=== PATIENT | female | born 1950 | race Caucasian/White ===

== ENCOUNTER 2018-01-05 10:57 | Emergency (ER) | payer OTHER ==
[~2018-01-05] VITALS: Ht 157.5 cm; Wt 75.5 kg
[2018-01-05 11:03] VITALS: BP 123/75; TEMP 98.8
[2018-01-05] MEDS ORDERED: EXCEDRIN1 TAB PO (11:16)
[2018-01-05] MEDS ORDERED: PREDNISONE20 MG PO (11:42)
[2018-01-05 11:54] VITALS: PULSE 77
== END 2018-01-05 11:55 | disposition home or self-care (01) ==
LOC: COL.ER 10:57
DX: G43.909 Migraine, unspecified, not intractable, without status migrainosus (principal); L25.9 Unspecified contact dermatitis, unspecified cause; Z90.710 Acquired absence of both cervix and uterus

== ENCOUNTER 2018-10-16 20:04 | Emergency (ER) | payer OTHER ==
[~2018-10-16] VITALS: Ht 157.5 cm; Wt 72.7 kg
[~2018-10-16 20:04] MED LIST: EXCEDRIN1 TAB PO; PREDNISONE20 MG PO
[2018-10-16 20:44] LABS: BASO # 0.1 (0.0-0.2); BASO % 0.5 % (0.0-2.0); EOS % 0.3 % (0-4.0); GRAN # 8.9 (1.4-6.5); GRAN % 81.9 % (42.2-75.2); LYMPH # 1.2 (1.2-3.4); LYMPH % 10.6 % (20.0-51.0); MEAN CELL VOLUME 90 fl (80.0-100.0); MEAN CORPUSCULAR HEMOGLOBIN 30 pg (27.0-31.0); MEAN CORPUSCULAR HGB CONC 33 g/dl (33.0-37.0); MEAN PLATELET VOLUME 10.7 fl (7.4-10.4); MONO # 0.7 (0.1-0.6); MONO % 6.5 % (1.7-9.3); PLATELET COUNT 195 K/mm3 (130-400); RED BLOOD COUNT 4.03 M/mm3 (4.10-5.30)
[2018-10-16 20:47] LABS: HEMATOCRIT 36.4 % (37.0-47.0)
[2018-10-16 20:59] LABS: BILIRUBIN,TOTAL 0.3 mg/dL (0.0-1.0); C-REACTIVE PROTEIN 5.8 mg/dL (0.0-0.9); CALCIUM 9.1 mg/dL (8.4-10.2); CREATININE, serum 0.53 (0.52-1.25); POTASSIUM 3.5 mmol/L (3.4-5.0); TOTAL PROTEIN 7.1 gm/dL (6.4-8.2)
[2018-10-16 21:03] LABS: STREP SCREEN NEGATIVE
[2018-10-16 22:56] LABS: COLLECTION METHOD CLEAN CATCH
[2018-10-16 23:06] LABS: MUCOUS Present /lpf; PH 6 (5-8); URINE APPEARANCE Clear; URINE BACTERIA None Seen /hpf; URINE BILIRUBIN Negative (NEGATIVE); URINE BLOOD Negative (NEGATIVE); URINE COLOR Yellow; URINE GLUCOSE Negative (NEGATIVE); URINE KETONE 1+ (NEGATIVE); URINE LEUKOCYTE ESTERASE 1+ (NEGATIVE); URINE NITRATE Negative (NEGATIVE); URINE PROTEIN(semi-quant) Negative (NEGATIVE); URINE UROBILINOGEN Negative (NEGATIVE)
[2018-10-16] MEDS ORDERED: NORCO 325 MG-51 TAB PO (23:33)
[2018-10-16] MEDS ORDERED: CLEOCIN HCL300 MG PO (23:33)
[2018-10-17] MEDS ORDERED: NORCO 325 MG-51 TAB PO (00:46)
[2018-10-17 00:52] VITALS: BP 128/84; PULSE 109; TEMP 99.9
== END 2018-10-17 00:52 | disposition home or self-care (01) ==
LOC: COL.ER 20:04
PROVIDERS: Physician Assistant
DX: J02.9 Acute pharyngitis, unspecified (principal); J45.909 Unspecified asthma, uncomplicated; Z90.49 Acquired absence of other specified parts of digestive tract; Z90.710 Acquired absence of both cervix and uterus
CPT/HCPCS: J1100; J1200; J1885; J2930; J7030; Q9967

== ENCOUNTER → 2018-10-21 | Outpatient (CLI) | payer OTHER ==
[~2018-10-21] MED LIST changes: +CLEOCIN HCL300 MG PO; +NORCO 325 MG-51 TAB PO
== END ==
LOC: COL.RAD 10:22
DX: E04.2 Nontoxic multinodular goiter (principal)

== ENCOUNTER → 2018-11-14 | Outpatient (CLI) | payer MEDICARE, OTHER | LOC: COL.RAD 14:07 | DX: K44.9 Diaphragmatic hernia without obstruction or gangrene (principal); K21.9 Gastro-esophageal reflux disease without esophagitis ==

== ENCOUNTER 2018-12-06 10:03 | Day surgery (SDC) | payer MEDICARE, OTHER ==
[2018-12-06] VITALS (11 sets, daily range): BP systolic 114–151; BP diastolic 66–95; PULSE 58–96; TEMP 97.5–98.2
[~2018-12-06] VITALS: Ht 157.5 cm; Wt 72.7 kg
[~2018-12-06 10:03] MED LIST changes: +PRILOSEC 20MG20 MG PO
[2018-12-06] MEDS ORDERED: ADVIL200 MG PO (11:02)
--- NOTE | 2018-12-06 11:35 | NUR ---
HIRAM Guy made aware of patient's blood pressure being elevated. OUTBOARD SYSTEM OPERATOR into see patient at this time.
--- NOTE | 2018-12-06 11:45 | NUR ---
into see patient at this time.
--- NOTE | 2018-12-06 12:02 | NUR ---
Initial visit; Patient and family thanked [facility] for offering Spiritual Care, especially prayer prior to her surgical procedure.
--- NOTE | 2018-12-06 15:30 | NUR ---
Patient up from OR. Drowsy but arouses to voice and touch. Family at bedside. Lap sites x 6 with edges well approximated. Post op fluids infusing via gravity to left forarm IV. SCDs to BLE. Assessment complete. Denies further needs at this time. will continue to monitor
--- NOTE | 2018-12-06 18:39 | NUR ---
Patient has done well this afternoon, complains of head and neck pain. Post op VSS. Family remains at bedside. Has been up to restroom, x1 assist with steady gait. Denies further needs at this time. Will report off to car shifter.
--- NOTE | 2018-12-06 21:37 | NUR ---
Patient in bed, has wash cloth over eyes, complaining of headache and neck ache. Medicated with Dilaudid 0.25mg IV and dose of Ibuprofen given. IVF infusing to left forearm without redness or swelling. Robotic sites to abdomen x6 D/I glued. Bowel sounds hypoactive.
--- NOTE | 2018-12-06 23:20 | NUR ---
Reports nausea, medicated with oral Phenergan 12.5mg and IV Zofran 4mg at this time. Up to bathroom, voids 450cc yellow urine without problem.
[2018-12-07 03:11] VITALS: BP 142/68; PULSE 74; TEMP 98.6
--- NOTE | 2018-12-07 03:14 | NUR ---
Medicated with IV Dilaudid for continued headache. Continues to have intermittent nausea, especially with movement.
--- NOTE | 2018-12-07 06:00 | NUR ---
Reports headache is better after dose of Dilaudid at 0314. Reports continued nausea, medicated with Zofran 4mg IV at this time.
--- NOTE | 2018-12-07 07:15 | NUR ---
report to Emily COELLO
--- NOTE | 2018-12-07 08:00 | NUR ---
UPON ENTRY INTO THE ROOM PATIENT IS RESTING IN THE DARK WITH HER DAUGHTER PRESENT AT THE BEDSIDE. PATIENT IS A&OX4. VSS. PATIENT STATES THAT SHE FEELS WEAK. BOWEL SOUNDS ACTIVE ALL FOUR QUADRANTS. BILATERAL UPPER LUNG LOBES AND RLL CLEAR UPON ASUCULTATION. FINE CRACKLES AUSCULTATED OVER LEFT LOWER LUNG LOBE. ABDOMINAL LAP SITES X6 PHILOMENA WITH MÁRQUEZ SET IN PLACE AND EDGES WELL APPROXIMATED. POSITIVE PEDAL PULSES EQUAL BILATERALLY. NON-PITTING EDEMA TO BLE. SCD'S TO BLE. IV FLUIDS INFUSING TO LEFT FOREARM IV VIA PUMP. CALL LIGHT WITHIN REACH. PATIENT DENIES ANY NEEDS AT THIS TIME.
[2018-12-07] MEDS ORDERED: PHENERGAN 25 TA25 MG PO (08:05)
[2018-12-07] MEDS ORDERED: PERCOCET 325 MG1 TA2 PO (08:06)
[2018-12-07] MEDS ORDERED: MOTRIN 600600 MG/TAB PO (08:06)
[2018-12-07] MEDS ORDERED: ZOFRAN ODT4 MG PO (08:07)
[2018-12-07 08:25] VITALS: BP 130/82; PULSE 85; TEMP 98
--- NOTE | 2018-12-07 10:55 | NUR ---
NATHAN met with the patient and patient's daughter, Malena, to discuss discharge plan. 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 She reports independence with ADLs and does not have any DME. The patient's PCP is Dr. Fuentes Stein and she receives her medications at the [facility]. She reports no difficulties obtaining her meds. The patient's advanced directives are in her chart. Her daughter, Heather, is her DPOA-HC. The alternate is her daugher, Malena. The patient plans to return home with her daughter upon discharge. No additional needs at this time.
--- NOTE | 2018-12-07 11:03 | NUR ---
First visit from the executive administrative asst. No needs right now.
[2018-12-07 12:00] VITALS: BP 125/84; PULSE 75; TEMP 98.6
[2018-12-07 17:22] VITALS: BP 115/71; PULSE 77; TEMP 98.1
--- NOTE | 2018-12-07 17:25 | NUR ---
PATIENT'S MIGRAINE AND ABDOMINAL PAIN TREATED WITH PO EXCEDRIN, TYLENOL, AND PERCOCET, WELL IV TORADOL THROUGHOUT THE SHIFT.
--- NOTE | 2018-12-07 19:22 | NUR ---
REPORT GIVEN TO MODE LIANG.
[2018-12-07 19:43] VITALS: BP 146/77; PULSE 83; TEMP 97.8
--- NOTE | 2018-12-07 22:20 | NUR ---
Patient denies headache, reports pain to abdomen /10. Medicated with Percocet 2 tabs at this time. Patient sat up in the chair for 2 hours, does not want to walk in the hallway, has walked in her room. Reports "gas" like pain to abdomen and shoulders, continued to encourage walking as she hasn't passed gas. IVF infusing to left FA without redness or swelling. Daughter remains at bedside. Lap sites dry, bowel sounds active. Denies nausea at this time.
[2018-12-07 23:29] VITALS: BP 132/59; PULSE 80; TEMP 98
[2018-12-08 03:57] VITALS: BP 145/91; PULSE 89; TEMP 98.3
--- NOTE | 2018-12-08 04:00 | NUR ---
Patient awake, complains of her "normal" headache, takes Excedrin at this time. Ambulates in hallway with her daughter. Noted subq emphysema around base of her neck. IV infusing to left FA site without redness or swelling.
--- NOTE | 2018-12-08 05:45 | NUR ---
Patient taking oral fluids well. IVF capped, has mild edema to bilateral lower legs.
[2018-12-08 07:38] VITALS: BP 126/73; PULSE 79; TEMP 98.4
--- NOTE | 2018-12-08 08:00 | NUR ---
UPON ENTRY INTO ROOM PATIENT IS SITTING IN THE CHAIR WITH HER DAUGHTERS PRESENT IN THE ROOM. PATIENT IS A&OX4. VSS. BOWEL SOUNDS ACTIVE ALL FOUR QUADRANTS. PATIENT TOLERATING DIET WITHOUT ANY COMPLAINTS OF N/V. PATIENT PASSING FLATUS. ABDOMINAL LAP SITES X6 COTTON WEIGHER WITH EDGES WELL APPROXIMATED AND MÁRQUEZ SET IN PLACE. POSITIVE PEDAL PULSES EQUAL BILATERALLY. NON-PITTING EDEMA TO BLE. INT TO LEFT FOREARM. PATIENT AMBULATING IN HALLWAY WITH FAMILY THIS MORNING. CALL LIGHT WITHIN REACH. PATIENT DENIES ANY NEEDS AT THIS TIME.
[2018-12-08 11:52] VITALS: BP 130/76; PULSE 69; TEMP 97.8
--- NOTE | 2018-12-08 13:40 | NUR ---
PATIENT'S LEFT FOREARM INT DISCONTINUED PER PENDING DISCHARGE. TIP INTACT. PATIENT TOLERATED WELL.
--- NOTE | 2018-12-08 13:45 | NUR ---
DISCHARGE INSTRUCTIONS REVIEWED WITH PATIENT AND DAUGHTERS. ALL QUESTIONS ANSWERED. PATIENT PERSONAL BELONGINGS GATHERED. PATIENT AMBULATED TO PERSONAL VEHICLE WITH SURGICAL STAFF. PATIENT DISCHARGED.
[2018-12-08 16:09] VITALS: BP 100/57; PULSE 60; TEMP 97.8
== END 2018-12-08 13:45 | disposition home or self-care (01) ==
LOC: SDCO 10:03 → SURG 15:20 → SDCO 12-08 13:45
DX: K21.9 Gastro-esophageal reflux disease without esophagitis (principal); K44.9 Diaphragmatic hernia without obstruction or gangrene; J43.9 Emphysema, unspecified; Z90.710 Acquired absence of both cervix and uterus; Z90.89 Acquired absence of other organs; M19.90 Unspecified osteoarthritis, unspecified site; G43.909 Migraine, unspecified, not intractable, without status migrainosus; Z90.49 Acquired absence of other specified parts of digestive tract; Z80.3 Family history of malignant neoplasm of breast; Z80.8 Family history of malignant neoplasm of other organs or systems; Z88.2 Allergy status to sulfonamides
CPT/HCPCS: OP; J0690; J1100; J1170; J1885; J2405; J2704; J3010; J7120

== ENCOUNTER → 2019-02-28 | Outpatient (CLI) | payer MEDICARE, OTHER ==
[~2019-02-28] MED LIST changes: +ADVIL200 MG PO; +MOTRIN 600600 MG/TAB PO; +PERCOCET 325 MG1 TA2 PO; +PHENERGAN 25 TA25 MG PO; +ZOFRAN ODT4 MG PO
== END ==
LOC: COL.RAD 08:59
DX: K21.9 Gastro-esophageal reflux disease without esophagitis (principal); K22.8 Other specified diseases of esophagus; Z98.890 Other specified postprocedural states

== ENCOUNTER → 2019-03-09 | Outpatient (CLI) | payer MEDICARE, OTHER | LOC: COL.RAD 06:52 | DX: K44.9 Diaphragmatic hernia without obstruction or gangrene (principal); K52.9 Noninfective gastroenteritis and colitis, unspecified | CPT/HCPCS: A9541 ==

== ENCOUNTER → 2019-12-29 | Outpatient (CLI) | payer MEDICARE, OTHER | LOC: MC.RAD 12:58 | DX: N64.89 Other specified disorders of breast (principal); N64.59 Other signs and symptoms in breast ==

== ENCOUNTER → 2020-01-03 | Outpatient (CLI) | payer MEDICARE, OTHER | LOC: MC.RAD 07:54 | DX: N63.10 Unspecified lump in the right breast, unspecified quadrant (principal) ==

== ENCOUNTER 2020-01-19 06:51 | Day surgery (SDC) | payer MEDICARE, OTHER ==
[~2020-01-19] VITALS: Ht 157.5 cm; Wt 68.7 kg
[2020-01-19 08:54] VITALS: BP 160/98; PULSE 68; TEMP 98.6
[2020-01-19] MEDS ORDERED: TYLENOL 500MG500 MG PO (08:57)
[2020-01-19] MEDS ORDERED: PRIL40 PO (08:57)
[2020-01-19] MEDS ORDERED: ONE-A-DAY ESSE1 EACH PO (08:58)
[2020-01-19] MEDS ORDERED: MASON NATURAL2000 IU PO (08:58)
[2020-01-19] MEDS ORDERED: MOTRIN 200200 MG/TAB PO (08:59)
[2020-01-19] MEDS ORDERED: PROAIR HFA0.09 MG/AC IH (09:00)
--- NOTE | 2020-01-19 11:00 | NUR ---
The nurse assisted the patient to the bathroom with stand by assist and she appeared to tolerate the activity well. The patient voided without difficulty and ambulated back to bed. The patient denies any further needs at this time. The patient's daughter is at her bedside. Will continue to monitor the patient.
[2020-01-19] MEDS ORDERED: NORCO 325 MG-51 TAB PO (15:09)
[2020-01-19] MEDS ORDERED: MOTRIN 600600 MG/TAB PO (15:09)
[2020-01-19 15:40] VITALS: BP 122/74; PULSE 89; TEMP 98.4
--- NOTE | 2020-01-19 15:40 | NUR ---
The patient arrived back to [facility] from the recovery room at this time. The patient appears drowsy but arouses to her name. Post operative vital signs were started at this time. The patient's incision and dressing appear clean, dry and intact. The patient's daughter was brought back to be at her bedside. The patient has some ice chips at on her bedside table and appears to be tolerating them well. Call light is within reach. Will continue to monitor the patient.
[2020-01-19 15:55] VITALS: BP 118/71; PULSE 85
--- NOTE | 2020-01-19 15:55 | NUR ---
The patient appears to be resting comfortably on the cart at this time. Respirations even and unlabored. Daughter at bedside. Will continue to monitor the patient.
[2020-01-19 16:10] VITALS: BP 118/67; PULSE 84
--- NOTE | 2020-01-19 16:10 | NUR ---
The patient appears to be resting quielty with her eyes closed at this time. Respirations even and unlabored. The patient's daughter remains at her bedside. Will continue to monitor the patient.
[2020-01-19 16:25] VITALS: BP 134/79; PULSE 90
--- NOTE | 2020-01-19 16:25 | NUR ---
The patient was escorted out via wheelchair to a private vehicle by MODE Comer. The patient's belongings and discharge paperwork were sent with her. The patient's daughter is present to drive her hoem.
--- NOTE | 2020-01-19 16:25 | NUR ---
The patient's oxygen was turned down to 1L per nasal cannula. The patient continues to rest comfortably on the cart. Call light is within reach. Will continue to monitor the patient.
--- NOTE | 2020-01-19 16:35 | NUR ---
The patient reports having a migraine at this time. The nurse attempted to place an order for the patient's home excederin per Dr. Andrews but the pharmacy no longer carries excederin in their formulary.
--- NOTE | 2020-01-19 16:45 | NUR ---
The patient was given a dose of Motrin 600 mg at this time. The patient appears to be tolerating the water well and states it helps her "sore throat". The patient agrees to try some orange jello. The patient also was given a cool wash cloth for her forehead. The patient's daughter is going to assist her with the jello.
[2020-01-19 16:55] VITALS: BP 130/75; PULSE 89
--- NOTE | 2020-01-19 16:55 | NUR ---
The patient ambulated to the bathroom with the stand by assistance of the nurse and her daughter and appeared to tolerate the activity well. The patient voided without difficulty and voices a desire to be discharged. The patient's daughter is going to assist her to get dressed while the nurse finalizes the patient's discharge paperwork.
--- NOTE | 2020-01-19 17:20 | NUR ---
Discharge instructions were reviewed with the patient and her daughter at this time. They both verbalized understanding and have no questions for the nurse at this time. The patient's IV to her left hand was removed and a pressure dressing was applied to the site. The patient is dressed and ready to be escorted out.
== END 2020-01-19 17:25 | disposition home or self-care (01) ==
LOC: SDCO
DX: C50.911 Malignant neoplasm of unspecified site of right female breast (principal); Z17.0 Estrogen receptor positive status [ER+]; Z90.710 Acquired absence of both cervix and uterus; Z90.49 Acquired absence of other specified parts of digestive tract; Z88.3 Allergy status to other anti-infective agents; Z88.8 Allergy status to other drugs, medicaments and biological substances; Z91.048 Other nonmedicinal substance allergy status; K21.9 Gastro-esophageal reflux disease without esophagitis; G43.909 Migraine, unspecified, not intractable, without status migrainosus; M19.90 Unspecified osteoarthritis, unspecified site; D64.9 Anemia, unspecified; Z20.828 Contact with and (suspected) exposure to other viral communicable diseases
CPT/HCPCS: A9541; J0690; J1100; J1885; J2250; J2405; J2704; J2795; J3010; J7120

== ENCOUNTER 2020-01-30 06:39 | Day surgery (SDC) | payer MEDICARE, OTHER ==
[~2020-01-30] VITALS: Ht 157.5 cm; Wt 69.7 kg
[~2020-01-30 06:39] MED LIST changes: +MASON NATURAL2000 IU PO; +MOTRIN 200200 MG/TAB PO; +ONE-A-DAY ESSE1 EACH PO; +PRIL40 PO; +PROAIR HFA0.09 MG/AC IH; +TYLENOL 500MG500 MG PO
[2020-01-30 07:01] VITALS: BP 122/86; PULSE 74; TEMP 98.4
[2020-01-30 12:32] VITALS: BP 116/72; PULSE 87; TEMP 98.6
--- NOTE | 2020-01-30 12:32 | NUR ---
The patient arrived back to [facility] from the recovery room at this time. The patient appears alert and oriented and denies any pain or nausea at this time. The patient has a dressing to her right axilla and right port a catheter incision that appear clean, dry and intact. The patient has a drain set to to bulb suction in place to her right axilla that appears without redness or edema and has a small amount of red drainage present in the tubing and bulb. The patient's daughter was brought back to be at her bedside. The patient agrees to try some water at this time. Post operative vital signs were started at this time. Will continue to monitor the patient.
[2020-01-30 12:47] VITALS: BP 112/69; PULSE 74
--- NOTE | 2020-01-30 12:47 | NUR ---
The patient appears to be tolerating the water well. The patient's vital signs appear stable. Call light is within reach. Will continue to monitor the patient.
[2020-01-30 13:02] VITALS: BP 112/65; PULSE 75
--- NOTE | 2020-01-30 13:02 | NUR ---
The patient was given a new glass of water and some orange jello to try at this time. The patient's daughter remains at her bedside. Will continue to monitor the patient.
[2020-01-30 13:17] VITALS: BP 124/68; PULSE 74
--- NOTE | 2020-01-30 13:17 | NUR ---
The patient has finished her jello and appeared to tolerate the food and drink well. The patient denies wanting anything further to eat to drink at this time. Call light remains within reach. Will continue to monitor the patient.
--- NOTE | 2020-01-30 13:20 | NUR ---
Drain teaching was completed with the patient and her daughter. They both verbalized understanding and have no questions for the nurse at this time. The nurse provided with a pamphlet on HARSH drains which includes a log to record drain output.
--- NOTE | 2020-01-30 13:30 | NUR ---
The patient ambulated to the bathroom with the stand by assistance of one nurse and the daughter and appeared to tolerate the activity well. The patient voided without difficulty and voices a desire to be discharged home. The patient's daughter is going to assist the patient to get dressed and notify the staff when she is ready to be escorted out.
--- NOTE | 2020-01-30 13:49 | NUR ---
Discharge instructions were reviewed with the patient and her daughter at this time. They both verbalized understanding and have no questions for the nurse at this time. The patient's IV to left hand was removed and a pressure dressing was applied to the site. The patient is dressed and ready to be escorted out.
--- NOTE | 2020-01-30 14:00 | NUR ---
The patient was escorted out via wheelchair to a private vehicle by MODE Comer. The patient's belongings and discharge paperwork were sent with her. The patient's daughter is present to drive her home.
== END 2020-01-30 14:00 | disposition home or self-care (01) ==
LOC: SDCO
DX: C77.3 Secondary and unspecified malignant neoplasm of axilla and upper limb lymph nodes (principal); C50.911 Malignant neoplasm of unspecified site of right female breast; M54.5 Low back pain; G43.909 Migraine, unspecified, not intractable, without status migrainosus; Z20.828 Contact with and (suspected) exposure to other viral communicable diseases; Z79.899 Other long term (current) drug therapy; Z98.51 Tubal ligation status; Z90.710 Acquired absence of both cervix and uterus; Z80.3 Family history of malignant neoplasm of breast; Z88.5 Allergy status to narcotic agent; Z91.041 Radiographic dye allergy status; Z90.49 Acquired absence of other specified parts of digestive tract
CPT/HCPCS: C1788; J0360; J0690; J1100; J1644; J1885; J2250; J2405; J2704; J2795; J3010; J7120

== ENCOUNTER 2020-04-17 10:00 | Outpatient (RCR) | payer MEDICARE, OTHER | END 2020-04-17 10:56 | disposition home or self-care (01) | LOC: MKS.ESL.PT 10:00 | DX: C50.911 Malignant neoplasm of unspecified site of right female breast (principal); I89.0 Lymphedema, not elsewhere classified; Z98.890 Other specified postprocedural states ==

== ENCOUNTER → 2020-08-09 | Outpatient (CLI) | payer MEDICARE, OTHER ==
[~2020-08-09] MED LIST changes: +ARIMIDEX1 MG PO; +LIPITOR 40MG TA40 MG PO; -MASON NATURAL2000 IU PO; +PRINIVIL10 MG PO; +REGLAN 5MG T5 MG/TAB PO; +TOPROL XL 25MG25 MG PO; +VITAMIND3 5000 PO
== END ==
LOC: COL.RAD 08-08 12:00
DX: R06.02 Shortness of breath (principal)
CPT/HCPCS: A9540; A9567

== ENCOUNTER → 2020-09-27 | Outpatient (CLI) | payer MEDICARE, OTHER | LOC: MC.RAD 12:56 | DX: N63.11 Unspecified lump in the right breast, upper outer quadrant (principal); N64.89 Other specified disorders of breast; Z98.890 Other specified postprocedural states; Z85.3 Personal history of malignant neoplasm of breast; Z98.82 Breast implant status ==

== ENCOUNTER → 2021-03-28 | Outpatient (CLI) | payer MEDICARE, OTHER | LOC: MC.RAD 14:00 | DX: C50.911 Malignant neoplasm of unspecified site of right female breast (principal); Z98.890 Other specified postprocedural states ==

== ENCOUNTER 2021-04-07 08:31 | Day surgery (SDC) | payer MEDICARE, OTHER ==
[~2021-04-07] VITALS: Ht 157.5 cm; Wt 71.4 kg
[2021-04-07] VITALS (13 sets, daily range): BP systolic 143–169; BP diastolic 73–124; PULSE 60–77; TEMP 98
[~2021-04-07 08:31] MED LIST changes: -ARIMIDEX1 MG PO; -LIPITOR 40MG TA40 MG PO; -PRINIVIL10 MG PO; -REGLAN 5MG T5 MG/TAB PO; -TOPROL XL 25MG25 MG PO
[2021-04-07] MEDS ORDERED: ARIMIDEX1 MG PO (09:08)
[2021-04-07] MEDS ORDERED: PRINIVIL10 MG PO (09:09)
[2021-04-07] MEDS ORDERED: TOPROL XL 25MG25 MG PO (09:10)
[2021-04-07] MEDS ORDERED: LIPITOR 40MG TA40 MG PO (09:11)
[2021-04-07] MEDS ORDERED: REGLAN 5MG T5 MG/TAB PO (09:11)
[2021-04-07] MEDS ORDERED: PREDNISONE20 MG PO (09:15)
[2021-04-07 09:52] LABS: HEMOGLOBIN 10.8 g/dl (12.5-16.0); MEAN CELL VOLUME 89 fl (80.0-100.0); MEAN CORPUSCULAR HEMOGLOBIN 29 pg (27.0-31.0); MEAN CORPUSCULAR HGB CONC 32 g/dl (33.0-37.0); MEAN PLATELET VOLUME 9.8 fl (7.4-10.4); PLATELET COUNT 241 K/mm3 (130-400); RED BLOOD COUNT 3.75 M/mm3 (4.10-5.30); REDCELL DISTRIBUTION WIDTH-CV 13.3 % (11.5-14.5)
[2021-04-07 09:54] LABS: HEMATOCRIT 33.5 % (37.0-47.0)
[2021-04-07 10:02] LABS: INR 1.1 (0.8-3.0); PROTHROMBIN TIME 12.2 SECONDS (9.7-12.8)
[2021-04-07 10:04] LABS: PARTIAL THROMBOPLASTIN TIME 27.9 SECONDS (26.0-37.0)
[2021-04-07 10:07] LABS: CALCIUM 9.8 mg/dL (8.4-10.2); CREATININE, serum 0.59 mg/dL (0.57-1.11); POTASSIUM 3.8 mmol/L (3.5-4.5)
--- NOTE | 2021-04-07 10:44 | NUR ---
SEE MERGE DOCUMENTATION FOR MEDICATION ADMINISTRATION TIMES AND INTRA/POST PROCEDURE SEDATION ASSESSMENTS. PLAN FOR LEFT RADIAL ACCESS D/T HX OF LYMPHEDMA ON RIGHT.
--- NOTE | 2021-04-07 13:22 | NUR ---
Attempted to removed 2ml of air from TR band resulting in immediate oozing of blood from punture site. 2ml of air replaced and oozing stops. Will attempt to remove air again in one hour.
--- NOTE | 2021-04-07 14:22 | NUR ---
Second attempt to remove 2ml of air from TR band. Immediate oozing of blood from punture site when air is removed, and oozing resolves as soon as air is replaced in band. Cap refill remains brisk to left hand and pt denies complaints of numbess or tingeling to fingers. She is assisted up to bathroom with steady gait.
--- NOTE | 2021-04-07 16:06 | NUR ---
DC instructions reviewed with pt and daughter, both express understanding. On initial 2 attempts to deflate TR band, bleeding from left radial puncture site occured immediatley upon releasing 2 ml of air, and stopped with replacement of 2ml of air. Attempt to remove 2ml of air again at 1525 with no bleeding from site. Remainder of air in TR band was removed in 2ml increments every 5 mins without issue. Left radial puncture site dressed with folded 2x2, bandaid and coban wrap. Pt instructed to remove coban wrap once she is home. PAC flushed, heparinized and deaccessed. Pt has been steady on feet in room. She has refused desire to eat but has tolerated PO fluids without issue. She is assisted out to daughter's car at this time by wheelchair with personal belongings.
== END 2021-04-07 16:05 | disposition home or self-care (01) ==
LOC: COL.CAR 08:31
PROVIDERS: Internal Medicine Cardiovascular Disease
DX: I25.118 Atherosclerotic heart disease of native coronary artery with other forms of angina pectoris (principal); I10 Essential (primary) hypertension; I51.7 Cardiomegaly; E78.5 Hyperlipidemia, unspecified; Z79.82 Long term (current) use of aspirin; Z79.899 Other long term (current) drug therapy; Z83.3 Family history of diabetes mellitus; Z80.9 Family history of malignant neoplasm, unspecified
CPT/HCPCS: J1200; J1644; J2250; J7030; Q9967

== ENCOUNTER → 2021-11-14 | Outpatient (CLI) | payer MEDICARE, OTHER ==
[~2021-11-14] MED LIST changes: +ARIMIDEX1 MG PO; +LIPITOR 40MG TA40 MG PO; +PRINIVIL10 MG PO; +REGLAN 5MG T5 MG/TAB PO; +TOPROL XL 25MG25 MG PO
== END ==
LOC: MC.RAD 10:43
DX: N63.10 Unspecified lump in the right breast, unspecified quadrant (principal); Z85.3 Personal history of malignant neoplasm of breast; Z98.890 Other specified postprocedural states

== ENCOUNTER → 2022-04-01 | Outpatient (CLI) | payer OTHER, MEDICARE | LOC: COL.RAD 12:59 | DX: R51.9 Headache, unspecified (principal); I10 Essential (primary) hypertension ==

== ENCOUNTER → 2022-06-18 | Outpatient (CLI) | payer MEDICARE, OTHER | LOC: COL.RAD 08:16 | DX: R22.1 Localized swelling, mass and lump, neck (principal); Z85.3 Personal history of malignant neoplasm of breast | CPT/HCPCS: Q9967 ==

== ENCOUNTER → 2022-07-01 | Outpatient (CLI) | payer MEDICARE, OTHER | LOC: COL.RAD 13:45 | DX: E04.1 Nontoxic single thyroid nodule (principal) ==

== ENCOUNTER 2022-07-17 19:21 | Observation (INO) | payer MEDICARE, OTHER ==
[~2022-07-17] VITALS: Ht 154.9 cm; Wt 69.9 kg
[2022-07-17 19:54] LABS: COLLECTION METHOD CLEAN CATCH
[2022-07-17 19:59] LABS: BASO # 0.1 K/mm3 (0.0-0.2); BASO % 0.8 % (0.0-2.0); EOS # 0.2 K/mm3 (0.0-0.7); EOS % 2.1 % (0.0-4.0); GRAN # 5.6 K/mm3 (1.4-6.5); GRAN % 65.8 % (42.2-75.2); HEMATOCRIT 37.1 % (37.0-47.0); HEMOGLOBIN 12.2 g/dl (12.5-16.0); LYMPH # 2.2 K/mm3 (1.2-3.4); LYMPH % 25.5 % (20.0-51.0); MEAN CELL VOLUME 88 fl (80.0-100.0); MEAN CORPUSCULAR HEMOGLOBIN 29 pg (27-31); MEAN CORPUSCULAR HGB CONC 33 g/dl (33.0-37.0); MEAN PLATELET VOLUME 10.1 fl (7.4-10.4); MONO # 0.5 K/mm3 (0.1-0.6); MONO % 5.7 % (1.7-9.3); PLATELET COUNT 221 K/mm3 (130-400); RED BLOOD COUNT 4.24 M/mm3 (4.10-5.30); REDCELL DISTRIBUTION WIDTH-CV 15.9 % (11.5-14.5)
[2022-07-17 20:13] LABS: MUCOUS Present (NOT PRESENT); URINE BACTERIA None Seen /hpf (NONE SEEN)
[2022-07-17 20:15] LABS: URINE APPEARANCE Clear (CLEAR/HAZY); URINE BLOOD 1+ (NEGATIVE); URINE COLOR Yellow (YELLOW); URINE GLUCOSE Negative (NEGATIVE); URINE KETONE Negative (NEGATIVE); URINE NITRATE Negative (NEGATIVE); URINE PROTEIN(semi-quant) 2+ (NEGATIVE); URINE UROBILINOGEN 0.2 (NEGATIVE)
[2022-07-17 20:27] LABS: BILIRUBIN,TOTAL 0.3 mg/dL (0.2-1.2); CALCIUM 9.4 mg/dL (8.4-10.2); CREATININE, serum 0.82 mg/dL (0.57-1.11); POTASSIUM 3.4 mmol/L (3.5-4.5); TOTAL PROTEIN 6.8 gm/dL (6.2-8.1)
[2022-07-17] MEDS ORDERED: FERRO-TIME325 MG PO (21:13)
[2022-07-17] MEDS ORDERED: COZAAR 50MG50 MG/TAB PO (21:15)
[2022-07-17] MEDS ORDERED: CATAPRES 0.1MG0.1 MG PO (21:15)
[2022-07-17] MEDS ORDERED: TOPROL XL 25MG25 MG (21:16)
[2022-07-17] MEDS ORDERED: BINOSTO (21:17)
[2022-07-17] MEDS ORDERED: PEPCID 20MG TAB20 MG PO (21:18)
--- NOTE | 2022-07-17 21:40 | NUR ---
REPORT RCVD FROM ED. RN STATES THERE IS AN ORDER FOR BRANDS EDITOR, HOWEVER PAIN IS MANAGED WITH 0.25MG OF DILAUDID. CONTACTED DR. CARBAJAL FOR ORDERS ON THE FLOOR D/T AGGRESSIVE PAIN MANAGEMENT ORDERS AND RN CONCERN FOR OVER MEDICATING. DR. CARBAJAL AGREES, AND ORDERED 3MG MORPHINE Q2H PRN FOR PAIN, AND TORADOL 15MG Q6H SCHEDULED FOR ANTI-INFLAMMATORY. DR. CARBAJAL DID ASK FOR PATIENT TO BE NPO AT [facility] FOR 0900 PROCEDURE. NO OTHER CONCERNS AT THIS TIME. WILL AWAIT ARRIVAL OF PATIENT FROM ED.
[2022-07-17 22:14] VITALS: BP 175/90; PULSE 93; TEMP 98.5
--- NOTE | 2022-07-17 22:48 | NUR ---
Pt arrived to the surgical floor, denies pain at this time. The patient is ambulatory independently and went to the bathroom upon arrival. Urine is yellow and clear. Urine strained, no stone at this time. PCT did initial vitals upon arrival and blood pressure was elevated, contacted Dr. Meneses to restart patient's home blood pressure medications. Placed medication order for Metoprol XL 25mg and PRN Catapres 0.1mg. No other concerns at this time. Will reassess blood pressures in 1 hour.
[2022-07-17 23:43] VITALS: BP 118/61; PULSE 85; TEMP 98.3
[2022-07-18] VITALS (10 sets, daily range): BP systolic 99–150; BP diastolic 48–90; PULSE 55–75; TEMP 97.6–99.1
--- NOTE | 2022-07-18 06:25 | NUR ---
PT'S PAIN WAS MANAGED WITH TORADOL AND DILAUDID FOR BREAKTHROUGH. THE PATIENT IS ON MAINTAINANCE FLUIDS AT 125ML/HR. DR. CARBAJAL WILL ARRIVE EARLY THIS MORNING TO DISCUSS PROCEDURE WITH PATIENT. NO OTHER CONCERNS AT THIS TIME.
--- NOTE | 2022-07-18 07:00 | NUR ---
Pt. laying in bed. Pt. is A&OX3, assessment complete. IV to lt. ac patent. Pt. reports pain at a 9 on pain scale at this time, Giving meds per orders. Pt. denies further needs, call light within reach.
--- NOTE | 2022-07-18 08:15 | NUR ---
Pt. to OR
--- NOTE | 2022-07-18 10:15 | NUR ---
Pt. to the floor from PACU. VSS. Pt. remains A&OX3. Pt. denies pain or other needs.
--- NOTE | 2022-07-18 13:00 | NUR ---
Pt. has met discharge Criteria. INT discontinued from lt. ac. Reviewed and gave discharge paperwork to the pt. Pt. denies Questions. Pt. dresssed and escorted out by BLUEPRINT REPRODUCER.
== END 2022-07-18 13:00 | disposition home or self-care (01) ==
LOC: COL.ER 19:21 → SURG 21:07
PROVIDERS: Nurse Practitioner Primary Care; ADMIT Urology
DX: N20.1 Calculus of ureter (principal)
CPT/HCPCS: C1769; C2617; G0378; J0690; J1100; J1170; J1885; J2405; J2704; J3010; J7030; J7120

== ENCOUNTER 2022-08-10 06:27 | Day surgery (SDC) | payer MEDICARE, OTHER ==
[~2022-08-10] VITALS: Ht 154.9 cm; Wt 66.3 kg
[~2022-08-10 06:27] MED LIST changes: +BINOSTO; +CATAPRES 0.1MG0.1 MG PO; +COZAAR 50MG50 MG/TAB PO; +FERRO-TIME325 MG PO; +PEPCID 20MG TAB20 MG PO; +TOPROL XL 25MG25 MG
[2022-08-10] MEDS ORDERED: D3-5050000 IU PO (07:02)
[2022-08-10] MEDS ORDERED: MULTI VITAMINS1 TAB PO (07:02)
[2022-08-10] MEDS ORDERED: FERRO-TIME325 MG PO (07:02)
[2022-08-10] MEDS ORDERED: TOPROL XL 25MG25 MG PO (07:03)
[2022-08-10] MEDS ORDERED: COZAAR 50MG50 MG/TAB PO (07:03)
[2022-08-10] MEDS ORDERED: CATAPRES 0.1MG0.1 MG PO (07:03)
[2022-08-10] MEDS ORDERED: FOSAMAX 70MG TA70 MG PO (07:04)
[2022-08-10] MEDS ORDERED: PEPCID 20MG TAB20 MG PO (07:04)
[2022-08-10] MEDS ORDERED: ARIMIDEX1 MG PO (07:05)
[2022-08-10] MEDS ORDERED: REGLAN 5MG T5 MG/TAB PO (07:05)
[2022-08-10] MEDS ORDERED: PRIL40 PO (07:05)
[2022-08-10] MEDS ORDERED: LIPITOR 40MG TA40 MG PO (07:05)
[2022-08-10 07:25] VITALS: BP 150/97; PULSE 79; TEMP 98.4
[2022-08-10 08:20] VITALS: BP 115/100; PULSE 77; TEMP 97.3
--- NOTE | 2022-08-10 08:20 | NUR ---
Patient arrives to endo bay 3 via cart, accompanied by Endo RN Juliana Montilla. She is alert and oriented. She ambulates with steady gait and standby assist to the chair in her room. Monitoring is applied. VSS. Dr. Andrews comes to the bedside and talks with the patient and her daughter. Bedside report is received from MODE Andrews. Patient denies pain or nausea. She is offered and receives juice and toast to eat. PIV to TKO.
[2022-08-10 08:35] VITALS: BP 155/98; PULSE 80
[2022-08-10 08:50] VITALS: BP 158/90; PULSE 65
--- NOTE | 2022-08-10 08:50 | NUR ---
Patient tolerated PO well. Denies pain, nausea, or other needs. VSS on room air.
--- NOTE | 2022-08-10 09:05 | NUR ---
Patient has met discharge criteria. Discharge instructions are discussed. She denies any questions and verbalizes understanding. PIV is removed with catheter intact and hemostasis achieved. She is changing to her clothing independently.
--- NOTE | 2022-08-10 09:20 | NUR ---
Patient is escorted to the exit via wheelchair by staff. She is discharged to the care of her daughter, who drives her home in a private vehicle at 0920.
== END 2022-08-10 09:20 | disposition home or self-care (01) ==
LOC: SDCO 06:27
DX: D64.9 Anemia, unspecified (principal); K29.30 Chronic superficial gastritis without bleeding; K57.30 Diverticulosis of large intestine without perforation or abscess without bleeding; K64.1 Second degree hemorrhoids; I10 Essential (primary) hypertension; D50.8 Other iron deficiency anemias
CPT/HCPCS: J2704; J7120